=== PATIENT | female | born 1975 | race Caucasian/White ===

== ENCOUNTER 2024-04-22 11:50 | Outpatient (CLI) | payer OTHER, SELFPAY ==
[2024-04-24 11:29] LABS: FSH 15.9 mIU/mL
[2024-05-02 00:09] LABS: Estradiol, Ultrasensitive 48 pg/mL
== END 2024-04-22 11:51 | disposition home or self-care (01) ==
LOC: ANHLAB 12:09
PROVIDERS: Visit Provider Student in an Organized Health Care Education/Training Program
DX: N93.9 Abnormal uterine and vaginal bleeding, unspecified (principal)
CPT/HCPCS: 36415; 82670; 83001; 84443